=== PATIENT | male | born 1980 | race American Indian/Alaskan Native ===

== ENCOUNTER 2020-10-24 12:01 | Observation (INO) | payer OTHER, MEDICAID ==
[2020-10-24 13:25] VITALS: BP 129/85
--- NOTE | 2020-10-24 18:47 | Emergency Department Report ---
ED General Adult HPI - General Chief complaint: Medical Clearance Stated complaint: CLEARANCE FOR TREATMENT Source: patient Mode of arrival: Ambulatory Limitations: No Limitations - History of Present Illness Initial comments: 40-year-old male patient with history of alcohol use presents to the emergency department requesting medical clearance for inpatient rehabilitation. Patient states he contacted [facility] to make arrangements to receive treatment for his alcohol use disorder. He was instructed to go to the emergency department for medical clearance. Patient's last drink was approximately 80 hours ago. He has experienced withdrawal symptoms on prior occasions when attempting to discontinue alcohol use. However, he is not experiencing any symptoms at this time. Denies headache, nausea, vomiting, syncope, seizure, shortness of breath, numbness, weakness. Denies all other complaints at this time. - Related Data Allergies Allergy/AdvReac Type Severity Reaction Status Date / Time No Known Allergies Allergy Unverified 10/24/20 13:22 ED Review of Systems ROS: Stated complaint: CLEARANCE FOR TREATMENT Other details as noted in HPI Other: GENERAL: Negative for fever, chills, weight change, anorexia, fatigue. ENT: Negative for ear pain, difficulty hearing, sore throat, nasal congestion, epistaxis. CARDIOVASCULAR: Negative for chest pain, palpitations, lower extremity swelling. PULMONARY: Negative for cough, dyspnea, wheezing, orthopnea, cyanosis. GASTROINTESTINAL: Negative for abdominal pain, nausea, vomiting, diarrhea, constipation. MUSCULOSKELETAL: Negative for joint pain, joint swelling, myalgias, back pain, neck pain. NEUROLOGICAL: Negative for headache, seizure, syncope, paresthesias, weakness. INTEGUMENTARY: Negative for erythema, rash, diaphoresis, laceration, ecchymosis. HEMATOLOGICAL: Negative for hemoptysis, hematemesis, hematochezia, hematuria. PSYCHIATRIC: Negative for hallucinations, suicidal ideation, homicidal ideation, anxiety, depression. ED Past Medical Hx - Past Medical History Previous Medical History?: No Hx Hypertension: Yes - Surgical History Past Surgical History?: No ED Physical Exam - General Limitations: No Limitations - Other Other exam information: General: Awake and alert. No acute distress. Head: Atraumatic, normocephalic. Eyes: EOMI. Pupils are equal and round. Normal sclera and conjunctiva. ENT: Oral mucosa is moist. Normal pharyngeal exam. Neck: Supple. No lymphadenopathy. Pulmonary: No respiratory distress. Clear to auscultation bilaterally. Cardiac: Regular rate and rhythm. Pulses are palpable and equal bilaterally. No lower extremity cyanosis or edema. Skin: Warm and dry. No rashes. Abdomen: Soft, non-tender, non-protuberant. No guarding, rigidity, or rebound. Bowel sounds are normal. No organomegaly or masses noted. Back: Normal alignment. No CVA tenderness. Extremities: Symmetrical. Full range of motion intact. Neurological: Alert and oriented, appropriately interactive, no focal deficits. Psych: Cooperative. Appropriate mood and affect. Speech is evenly metered. Thoughts are logically construed. ED Course Vital Signs 10/24/20 13:24 Temperature 98.9 F Pulse Rate 90 Respiratory 20 Rate Blood Pressure 129/85 O2 Sat by Pulse 99 Oximetry ED Medical Decision Making - Lab Data Result diagrams: 10/24/20 18:52 10/24/20 18:52 - Medical Decision Making Differential diagnosis including but not limited to: dehydration, electrolyte abnormality, hypoglycemia, anemia, alcohol withdrawal, toxic ingestion, delirium tremens Patient presents to the emergency department requesting medical clearance for outpatient substance abuse treatment program. He is afebrile, hemodynamic stable, no distress. No clinical evidence to suggest acute alcohol withdrawal. States he has no significant past medical history outside of his alcoholism. Labs significant for moderate neutropenia with white blood cell count of 1.7, 31% neutrophils, absolute neutrophil count of 527, platelet count of 37, and schistocytes detected on peripheral smear. Chemistries significant for multiple electrolyte disturbances. Corrected with IV magnesium, oral phosphate, IV thiamine, and normal saline. Hemoglobin is stable. Etiology of patient's neutropenia is unclear at this time. Patient will require further hematological evaluation prior to receiving medical clearance for detox. Case discussed with hospitalist, who agrees to admit. Patient expressed understanding and is a greeable to plan of care. Case discussed with Dr. Cleaning, attending emergency physician, who agrees with diagnostic work-up/plan of care. Critical care attestation.: If time is entered above; I have spent that time in minutes in the direct care of this critically ill patient, excluding procedure time. ED Disposition Clinical Impression: Thrombocytopenia, History of alcohol abuse, Schistocytosis Neutropenia Qualifiers: Neutropenia type: unspecified Qualified Code(s): D70.9 - Neutropenia, unspecified Disposition: ADMITTED INPATIENT Is pt being admited?: Yes Does the pt Need Aspirin: No Condition: Serious Time of Disposition: :58
[2020-10-24 19:25] LABS: Hematocrit 37.6 % (35.5-45.6); Mean Corpuscular HGB Conc 35 % (32-34); Mean Corpuscular Volume 108 fl (84-94); Red Blood Count 3.49 M/mm3 (3.65-5.03); Red Cell Distribution Width 13.9 % (13.2-15.2)
[2020-10-24 19:36] LABS: Alanine Aminotransferase 110 units/L (7-56); Albumin 5.2 g/dL (3.9-5); BUN/Creatinine Ratio 15; Blood Urea Nitrogen 17 mg/dL (9-20); Calcium 11.1 mg/dL (8.4-10.2); Hemolysis Index 13
[2020-10-24 19:45] LABS: Bacteria,Urine 1+ /HPF (Negative); Bilirubin,Urine SM (Negative); Blood,Urine NEG (Negative); Color,Urine Amber (Yellow); Mucus,Urine 3+ /HPF
[2020-10-24 19:46] LABS: Platelet Count 37 K/mm3 (140-440)
[2020-10-24 19:49] LABS: Amphetamine Screen,Urine Negative; Benzodiazepines Screen,Urine Negative; Cocaine Screen,Urine Negative; Methadone Screen,Urine Negative; Opiate Screen,Urine Negative
[2020-10-24] MEDS ORDERED: THIAMINE 100 MG in SODIUM CHLORIDE 0.9% 50 ML IV ONE (19:50)
[2020-10-24] MEDS ORDERED: SODIUM CHLORIDE 0.9% 1000 ML 1,000 ML IV ONE ×2 (19:50→19:54)
[2020-10-24 19:55] LABS: Ictotest,Urine Negative (Negative)
[2020-10-24 20:00] LABS: Cannabinoid Screen,Urine Positive
[2020-10-24] MEDS ORDERED: MAGNESIUM SULFATE IV ONE (20:30)
[2020-10-24] MEDS ORDERED: THIAMINE IV ONE (20:30)
[2020-10-24] MEDS ORDERED: SODIUM CHLORIDE 0.9% IV ONE (20:30)
[2020-10-24] MEDS ORDERED: K-PHOS NEUTRAL 250 MG TAB PO ONE (21:00)
[2020-10-24 21:01] LABS: RBC Morphology Normal; Total Cells Counted 100
[2020-10-24 21:09] LABS: Schistocytes Rare
[2020-10-24 21:16] LABS: Basophils % (Manual) 0 % (0.0-1.8); Eosinophils % (Manual) 0 % (0.0-4.3)
[2020-10-24 22:27] LABS: Smear for Schistocytes None Seen
[2020-10-24] MEDS ORDERED: MAGNESIUM HYDROXIDE (MOM) ORAL LIQD UDC PO PRN (22:44)
[2020-10-24] MEDS ORDERED: ONDANSETRON 4 MG/2 ML INJ IV PRN (22:44)
[2020-10-24] MEDS ORDERED: ACETAMINOPHEN 325 MG TAB PO PRN (22:44)
[2020-10-24] MEDS ORDERED: HYDROcodone/ACETAMINOPHEN 5-325 MG TAB PO PRN (22:44)
[2020-10-24] MEDS ORDERED: oxyCODONE /ACETAMINOPHEN 5-325MG TAB PO PRN (22:44)
[2020-10-24] MEDS ORDERED: ALUM-MAG HYDROXIDE-SIMETHICONE 200-200-20MG/5ML ORAL LIQD 30 ML PO PRN (22:44)
[2020-10-24] MEDS ORDERED: NALOXONE 0.4 MG/1 ML INJ IV PRN (22:44)
[2020-10-24] MEDS ORDERED: METOCLOPRAMIDE 10 MG/2 ML INJ IV PRN (22:44)
[2020-10-24] MEDS ORDERED: SENNOSIDES 8.6 MG TAB PO PRN (22:44)
--- NOTE | 2020-10-24 22:44 | History and Physical Report ---
History of Present Illness Date of examination: 10/24/20 Date of admission: 10/24/20 Chief complaint: Hiccups Alcohol use disorder History of present illness: This is 40-year-old male patient seen in the ED at bedside. Patient has a history of alcohol use disorder. He presents to the emergency department requesting medical clearance for inpatient rehabilitation. Patient states he contacted [facility] to make arrangements to receive treatment for his alcohol use disorder. He was instructed to go to the emergency department for medical clearance. Patient's last drink was approximately 80 hours ago. Patient admits vodka use 1 L daily. He reports that he has experienced withdrawal symptoms on prior occasions when attempting to discontinue alcohol us e. Patient denies any withdrawal symptoms on this admission. He denies denies headache, nausea, vomiting, syncope, seizure, shortness of breath, numbness, weakness, but admits hiccups that is ongoing on and off since 1 week. Reviewed patient's medication record, blood work and vital signs. Patient has low WBC, low platelet, low potassium, low phosphorus, and low magnesium. All electrolyte has been replaced. Heme oncologist Dr. Phillip has been consulted. Patient presently not in acute distress. Past History Past Medical History: other (Alcohol abuse) Past Surgical History: No surgical history Social history: lives with family, smoking, alcohol abuse, full code. denies: IV drug use Family history: no significant family history Medications and Allergies Allergies Allergy/AdvReac Type Severity Reaction Status Date / Time No Known Allergies Allergy Unverified 10/24/20 13:22 Active Meds: Active Medications Sodium Chloride (Sodium Chloride 0.9% 10 Ml Flush Syringe) 10 ml IV PRN PRN PRN Reason: LINE FLUSH Review of Systems Constitutional: fatigue Ears, nose, mouth and throat: no epistaxis, no bleeding gums Cardiovascular: no shortness of breath, no dyspnea on exertion Respiratory: no congestion Gastrointestinal: no melena Rectal: no itching, no hemorrhoids Musculoskeletal: muscle weakness, other (Hiccups x1 week) Integumentary: no rash, no pruritis, no redness Psychiatric: anxiety, depression, hopelessness, no suicidal ideation Hematologic/Lymphatic: no easy bruising, no easy bleeding Allergic/Immunologic: no urticaria Exam - Constitutional Vitals: Temp Pulse Resp BP Pulse Ox 98.9 F 90 20 129/85 99 10/24/20 13:24 10/24/20 13:24 10/24/20 13:24 10/24/20 13:24 10/24/20 13:24 General appearance: Present: mild distress, well-nourished - EENT Eyes: Present: PERRL ENT: hearing intact, clear oral mucosa - Neck Neck: Present: supple, normal ROM - Respiratory Respiratory effort: normal Respiratory: bilateral: CTA - Cardiovascular Heart rate: 90 Heart Sounds: Present: S1 & S2. Absent: rub, click - Extremities Extremities: pulses symmetrical, No edema Peripheral Pulses: within normal limits - Abdominal General gastrointestinal: Present: soft, non-tender, non-distended, normal bowel sounds Male genitourinary: Present: normal - Integumentary Integumentary: Present: clear, warm, dry - Musculoskeletal Musculoskeletal: gait normal, strength equal bilaterally - Psychiatric Psychiatric: appropriate mood/affect, intact judgment & insight - Neurologic Neurologic: CNII-XII intact, moves all extremities - Allied Health Allied health notes reviewed: nursing Results - Labs CBC & Chem 7: 10/24/20 18:52 10/24/20 18:52 Labs: Abnormal lab results 10/24/20 10/24/20 10/24/20 Range/Units 18:52 18:52 18:52 WBC 1.7 L* (4.5-11.0) K/mm3 RBC 3.49 L (3.65-5.03) M/mm3 MCV 108 H (84-94) fl MCH 37 H (28-32) pg MCHC 35 H (32-34) % Plt Count 37 L (140-440) K/mm3 Seg Neuts % (Manual) 31.0 L (40.0-70.0) % Lymphocytes % (Manual) 58.0 H (13.4-35.0) % Monocytes % (Manual) 11.0 H (0.0-7.3) % Seg Neutrophils # Man 0.5 L (1.8-7.7) K/mm3 Lymphocytes # (Manual) 1.0 L (1.2-5.4) K/mm3 Percent Retic (0.78-2.58) % Sodium 129 L (137-145) mmol/L Potassium 3.4 L (3.6-5.0) mmol/L Chloride 83.6 L (98-107) mmol/L Calcium 11.1 H (8.4-10.2) mg/dL Phosphorus 2.10 L (2.5-4.5) mg/dL Magnesium 1.50 L (1.7-2.3) mg/dL Total Bilirubin 1.30 H (0.1-1.2) mg/dL AST 171 H (5-40) units/L ALT 110 H (7-56) units/L Total Creatine Kinase 351 H (55-170) units/L Total Protein 9.2 H (6.3-8.2) g/dL Albumin 5.2 H (3.9-5) g/dL Ur Specific [place] (1.003-1.030) Salicylates < 0.3 L (2.8-20.0) mg/dL Acetaminophen (10.0-30.0) ug/mL 10/24/20 10/24/20 10/24/20 Range/Units 18:52 20:39 Unknown WBC (4.5-11.0) K/mm3 RBC (3.65-5.03) M/mm3 MCV (84-94) fl MCH (28-32) pg MCHC (32-34) % Plt Count (140-440) K/mm3 Seg Neuts % (Manual) (40.0-70.0) % Lymphocytes % (Manual) (13.4-35.0) % Monocytes % (Manual) (0.0-7.3) % Seg Neutrophils # Man (1.8-7.7) K/mm3 Lymphocytes # (Manual) (1.2-5.4) K/mm3 Percent Retic 0.42 L (0.78-2.58) % Sodium (137-145) mmol/L Potassium (3.6-5.0) mmol/L Chloride (98-107) mmol/L Calcium (8.4-10.2) mg/dL Phosphorus (2.5-4.5) mg/dL Magnesium (1.7-2.3) mg/dL Total Bilirubin (0.1-1.2) mg/dL AST (5-40) units/L ALT (7-56) units/L Total Creatine Kinase (55-170) units/L Total Protein (6.3-8.2) g/dL Albumin (3.9-5) g/dL Ur Specific [place] 1.035 H (1.003-1.030) Salicylates (2.8-20.0) mg/dL Acetaminophen 5.0 L (10.0-30.0) ug/mL Assessment and Plan - Patient Problems (1) Neutropenia Current Visit: No Status: Inactive Qualifiers: Neutropenia type: unspecified Qualified Code(s): D70.9 - Neutropenia, unspecified Plan to address problem: Patient denies viral Covid infection exposure Patient has no other signs and symptoms of sepsis Monitor WBCheme oncologist consulted (2) Thrombocytopenia Current Visit: No Status: Inactive Plan to address problem: Likely secondary to alcohol abuse/infection Bleeding precaution. Heme oncologist has been consultedfollow-up with plan of care (3) Elevated liver enzymes Current Visit: No Status: Acute Plan to address problem: Questionable cause dehydration/alcohol abuse Continue IV hydration and monitor liver enzymes (4) Electrolyte abnormality Current Visit: No Status: Acute Plan to address problem: Patient has low potassium, phosphorus, and magnesium likely secondary to malnutrition/alcohol use All electrolytes replaced A.m. lab check mag, potassium, and phosphate level. (5) History of alcohol abuse Current Visit: No Status: Inactive Plan to address problem: Discuss alcohol use cessation CIWA protocol. As needed Ativan Replace all electrolytes as needed (6) Hiccup Current Visit: Yes Status: Acute Plan to address problem: New onsetquestionable cause As needed Reglan (7) Tobacco abuse Current Visit: Yes Status: Acute Plan to address problem: Patient admits tobacco use 1 pack daily since age of 20 Discussed tobacco use cessationcardiovascular neoplasm syndrome of tobacco use explained to patient (8) DVT prophylaxis Current Visit: Yes Status: Acute Plan to address problem: SCD -no anticoagulant, patient has low platelet
[2020-10-24] MEDS ORDERED: SODIUM CHLORIDE 0.9% 1000 ML 1,000 ML IV SCH (22:45)
[2020-10-24] MEDS ORDERED: traZODone 50 MG TAB PO PRN (22:50)
[2020-10-24] MEDS ORDERED: traMADol 50 MG TAB PO PRN (22:50)
[2020-10-24] MEDS ORDERED: MAGNESIUM SULFATE 4 GM/100 ML BAG IV ONE (22:59)
[2020-10-25] MEDS ORDERED: HALOPERIDOL LACTATE 5 MG/1 ML INJ IM PRN
[2020-10-25] MEDS ORDERED: chlordiazePOXIDE 25 MG CAP PO PRN
[2020-10-25] MEDS ORDERED: LORazepam 2 MG/ML VIAL IV PRN
[2020-10-25 00:04] LABS: Hepatitis C Virus Antibody Non-Reactive (NonReactive)
[2020-10-25 00:15] LABS: Hepatitis B Surface Antigen Nonreactive (Negative)
[2020-10-25] MEDS ORDERED: POTASSIUM CHLORIDE ER 20 MEQ TAB PO ONE (00:30)
[2020-10-25] MEDS ORDERED: PHOS-NAK POWDER PACKET PO ONE (00:30)
[2020-10-25 01:03] LABS: Albumin 4.7 g/dL (3.9-5); Bilirubin,Direct 0.3 mg/dL (0-0.2)
--- NOTE | 2020-10-25 02:49 | Hem/Onc Consultation ---
History of Present Illness - History of Present Illness heme prelim note heme consult requested for pancytopenia 40yo man with alcohol dependence eval for alcohol withdrawal found to have pancytopenia IMP: pancytopenia with severe neutropenia liver dysfunction and hypersplenism likely r/o infection r/o HIV REC: labs to include HIV Ab no intervention for low plt count no neupogen planned unless infection is found abd u/s Laboratory Last Values WBC 1.7 K/mm3 (4.5-11.0) L* 10/24/20 18:52 Hgb 13.0 gm/dl (11.8-15.2) 10/24/20 18:52 Hct 37.6 % (35.5-45.6) 10/24/20 18:52 MCV 108 fl (84-94) H 10/24/20 18:52 Plt Count 37 K/mm3 (140-440) L 10/24/20 18:52 Seg Neutrophils # Man 0.5 K/mm3 (1.8-7.7) L 10/24/20 18:52 Lymphocytes # (Manual) 1.0 K/mm3 (1.2-5.4) L 10/24/20 18:52 Percent Retic 0.42 % (0.78-2.58) L 10/24/20 20:39 Total Bilirubin 1.20 mg/dL (0.1-1.2) 10/25/20 00:34 Direct Bilirubin 0.3 mg/dL (0-0.2) H 10/25/20 00:34 Indirect Bilirubin 0.9 mg/dL 10/25/20 00:34 AST 142 units/L (5-40) H 10/25/20 00:34 ALT 93 units/L (7-56) H 10/25/20 00:34 Alkaline Phosphatase 96 units/L (35-129) 10/25/20 00:34 Plasma/Serum Alcohol < 0.01 % (0-0.07) 10/24/20 18:52 Hepatitis A IgM Ab Non-reactive (NonReactive) 10/24/20 23:09 Hep Bs Antigen Nonreactive (Negative) 10/24/20 23:09 Hep B Core IgM Ab Non-reactive (NonReactive) 10/24/20 23:09 Hepatitis C Antibody Non-reactive (NonReactive) 10/24/20 23:09 HIV 1&2 Antibody Rapid Non react (Non React) 10/24/20 23:09 HIV P24 Antigen Non react (Non React) 10/24/20 23:09 Schistocytes Smear None seen 10/24/20 20:39 Past History Past Medical History: other (Alcohol abuse) Past Surgical History: No surgical history Social history: lives with family, smoking, alcohol abuse, full code. denies: IV drug use Family history: no significant family history Medications and Allergies Allergies Allergy/AdvReac Type Severity Reaction Status Date / Time No Known Allergies Allergy Unverified 10/24/20 13:22 Active Meds: Active Medications Acetaminophen (Acetaminophen 325 Mg Tab) 650 mg PO Q4H PRN PRN Reason: Pain MILD(1-3)/Fever >100.5/GIBSON Hydrocodone Bitart/Acetaminophen (Hydrocodone/Acetaminophen 5-325 Mg Tab) 2 each PO Q6H PRN PRN Reason: Pain, Moderate (4-6) Al Hydrox/Mg Hydrox/Simethicone (Alum-Mag Hydroxide-Simethicone [id number]/5ml Oral Liqd 30 Ml) 30 ml PO Q4H PRN PRN Reason: Indigestion Chlordiazepoxide HCl (Chlordiazepoxide 25 Mg Cap) 50 mg PO Q1H PRN PRN Reason: CIWA-Ar 8-15 Haloperidol Lactate (Haloperidol Lactate 5 Mg/1 Ml Inj) 5 mg IM Q1H PRN PRN Reason: Unrespon. to mult. doses BZD's Sodium Chloride (Nacl 0.9% 1000 Ml) 1,000 mls @ 100 mls/hr IV DIRECT HUSSEIN Magnesium Sulfate (Magnesium Sulfate 4gm/100ml) 4 gm in 100 mls @ 25 mls/hr IV ONCE ONE Stop: 10/25/20 02:58 Last Admin: 10/25/20 01:47 Dose: 25 mls/hr Documented by: Lorazepam (Lorazepam 2 Mg/Ml Vial) 2 mg IV Q1H PRN PRN Reason: CIWA-Ar 8-15 Magnesium Hydroxide (Magnesium Hydroxide (Mom) Oral Liqd Udc) 30 ml PO Q4H PRN PRN Reason: Constipation Metoclopramide HCl (Metoclopramide 10 Mg/2 Ml Inj) 10 mg IV Q6H PRN PRN Reason: Nausea And Vomiting Naloxone HCl (Naloxone 0.4 Mg/1 Ml Inj) 0.1 mg IV Q2MIN PRN PRN Reason: Res Rate </= 8 or 02 SAT < 92% Ondansetron HCl (Ondansetron 4 Mg/2 Ml Inj) 4 mg IV Q8H PRN PRN Reason: Nausea And Vomiting Oxycodone/Acetaminophen (Oxycodone /Acetaminophen 5-325mg Tab) 1 tab PO Q6H PRN PRN Reason: Pain, Moderate (4-6) Senna (Sennosides 8.6 Mg Tab) 8.6 mg PO Q12HR PRN PRN Reason: Constipation Sodium Chloride (Sodium Chloride 0.9% 10 Ml Flush Syringe) 10 ml IV PRN PRN PRN Reason: LINE FLUSH Tramadol HCl (Tramadol 50 Mg Tab) 50 mg PO Q6H PRN PRN Reason: Pain, Moderate (4-6) Trazodone HCl (Trazodone 50 Mg Tab) 50 mg PO QHS PRN PRN Reason: Insomnia Last Admin: 10/25/20 01:52 Dose: 50 mg Documented by: Exam - Constitutional Vitals: Last Vital Signs Temp 98.9 F 10/24/20 13:24 Pulse 90 10/24/20 13:24 Resp 20 10/24/20 13:24 BP 129/85 10/24/20 13:24 Pulse Ox 99 10/24/20 13:24 Results - Labs lab Results: Laboratory Results - last 24 hr 10/24/20 10/24/20 10/24/20 18:52 18:52 18:52 WBC 1.7 L* RBC 3.49 L Hgb 13.0 Hct 37.6 MCV 108 H MCH 37 H MCHC 35 H RDW 13.9 Plt Count 37 L Lymph % (Auto) Manager Of Development Add Manual Diff Complete Total Counted 100 Seg Neutrophils % Manager Of Development Seg Neuts % (Manual) 31.0 L Band Neutrophils % 0 Lymphocytes % (Manual) 58.0 H Reactive Lymphs % (Man) 0 Monocytes % (Manual) 11.0 H Eosinophils % (Manual) 0 Basophils % (Manual) 0 Metamyelocytes % 0 Myelocytes % 0 Promyelocytes % 0 Blast Cells % 0 Nucleated RBC % Not Reportable Seg Neutrophils # Man 0.5 L Band Neutrophils # 0.0 Lymphocytes # (Manual) 1.0 L Abs React Lymphs (Man) 0.0 Monocytes # (Manual) 0.2 Eosinophils # (Manual) 0.0 Basophils # (Manual) 0.0 Metamyelocytes # 0.0 Myelocytes # 0.0 Promyelocytes # 0.0 Blast Cells # 0.0 WBC Morphology Not Reportable Hypersegmented Neuts Not Reportable Hyposegmented Neuts Not Reportable Hypogranular Neuts Not Reportable Smudge Cells Not Reportable Toxic Granulation Not Reportable Toxic Vacuolation Not Reportable Dohle Bodies Not Reportable Pelger-Huet Anomaly Not Reportable Fabiana Rods Not Reportable Platelet Estimate Not Reportable Clumped Platelets Not Reportable Plt Clumps, EDTA Not Reportable Large Platelets Not Reportable Giant Platelets Not Reportable Platelet Satelliting Not Reportable Plt Morphology Comment Not Reportable RBC Morphology Normal Dimorphic RBCs Not Reportable Polychromasia Not Reportable Hypochromasia Not Reportable Poikilocytosis Not Reportable Anisocytosis Not Reportable Microcytosis Not Reportable Macrocytosis Not Reportable Spherocytes Not Reportable Pappenheimer Bodies Not Reportable Sickle Cells Not Reportable Target Cells Not Reportable Tear Drop Cells Not Reportable Ovalocytes Not Reportable Helmet Cells Not Reportable [place] Bodies Not Reportable Doran Rings Not Reportable [place] Cells Not Reportable Bite Cells Not Reportable Crenated Cell Not Reportable Elliptocytes Not Reportable Acanthocytes (Spur) Not Reportable Rouleaux Not Reportable Hemoglobin C Crystals Not Reportable Schistocytes Rare Malaria parasites Not Reportable Percent Retic Terrell Bodies Not Reportable Hem Pathologist Commnt No Sodium 129 L Potassium 3.4 L Chloride 83.6 L Carbon Dioxide 28 Anion Gap 21 BUN 17 Creatinine 1.1 Estimated GFR > 60 BUN/Creatinine Ratio 15 Glucose 83 Hemoglobin A1c Lactic Acid Calcium 11.1 H Phosphorus 2.10 L Magnesium 1.50 L Total Bilirubin 1.30 H Direct Bilirubin Indirect Bilirubin AST 171 H ALT 110 H Alkaline Phosphatase 113 Total Creatine Kinase 351 H Total Protein 9.2 H Albumin 5.2 H Albumin/Globulin Ratio 1.3 Lipase 59 TSH 1.610 Urine Color Urine Turbidity Urine pH Ur Specific [place] Urine Protein Urine Glucose (UA) Urine Ketones Urine Blood Urine Nitrite Urine Bilirubin Urine Ictotest Urine Urobilinogen Ur Leukocyte Esterase Urine WBC (Auto) Urine RBC (Auto) U Epithel Cells (Auto) Urine Bacteria (Auto) Urine Mucus Salicylates Urine Opiates Screen Urine Methadone Screen Acetaminophen Ur Barbiturates Screen Ur Phencyclidine Scrn Ur Amphetamines Screen U Benzodiazepines Scrn Urine Cocaine Screen U Marijuana (THC) Screen Drugs of Abuse Note Plasma/Serum Alcohol Hepatitis A IgM Ab Hep Bs Antigen Hep B Core IgM Ab Hepatitis C Antibody HIV 1&2 Antibody Rapid HIV P24 Antigen Schistocytes Smear 10/24/20 10/24/20 10/24/20 18:52 18:52 18:52 WBC RBC Hgb Hct MCV MCH MCHC RDW Plt Count Lymph % (Auto) Add Manual Diff Total Counted Seg Neutrophils % Seg Neuts % (Manual) Band Neutrophils % Lymphocytes % (Manual) Reactive Lymphs % (Man) Monocytes % (Manual) Eosinophils % (Manual) Basophils % (Manual) Metamyelocytes % Myelocytes % Promyelocytes % Blast Cells % Nucleated RBC % Seg Neutrophils # Man Band Neutrophils # Lymphocytes # (Manual) Abs React Lymphs (Man) Monocytes # (Manual) Eosinophils # (Manual) Basophils # (Manual) Metamyelocytes # Myelocytes # Promyelocytes # Blast Cells # WBC Morphology Hypersegmented Neuts Hyposegmented Neuts Hypogranular Neuts Smudge Cells Toxic Granulation Toxic Vacuolation Dohle Bodies Pelger-Huet Anomaly Fabiana Rods Platelet Estimate Clumped Platelets Plt Clumps, EDTA Large Platelets Giant Platelets Platelet Satelliting Plt Morphology Comment RBC Morphology Dimorphic RBCs Polychromasia Hypochromasia Poikilocytosis Anisocytosis Microcytosis Macrocytosis Spherocytes Pappenheimer Bodies Sickle Cells Target Cells Tear Drop Cells Ovalocytes Helmet Cells [place] Bodies Doran Rings Glad[place] Cells Bite Cells Crenated Cell Elliptocytes Acanthocytes (Spur) Rouleaux Hemoglobin C Crystals Schistocytes Malaria parasites Percent Retic Terrell Bodies Hem Pathologist Commnt Sodium Potassium Chloride Carbon Dioxide Anion Gap BUN Creatinine Estimated GFR BUN/Creatinine Ratio Glucose Hemoglobin A1c Lactic Acid Calcium Phosphorus Magnesium Total Bilirubin Direct Bilirubin Indirect Bilirubin AST ALT Alkaline Phosphatase Total Creatine Kinase Total Protein Albumin Albumin/Globulin Ratio Lipase TSH Urine Color Urine Turbidity Urine pH Ur Specific [place] Urine Protein Urine Glucose (UA) Urine Ketones Urine Blood Urine Nitrite Urine Bilirubin Urine Ictotest Urine Urobilinogen Ur Leukocyte Esterase Urine WBC (Auto) Urine RBC (Auto) U Epithel Cells (Auto) Urine Bacteria (Auto) Urine Mucus Salicylates < 0.3 L Urine Opiates Screen Urine Methadone Screen Acetaminophen 5.0 L Ur Barbiturates Screen Ur Phencyclidine Scrn Ur Amphetamines Screen U Benzodiazepines Scrn Urine Cocaine Screen U Marijuana (THC) Screen Drugs of Abuse Note Plasma/Serum Alcohol < 0.01 Hepatitis A IgM Ab Hep Bs Antigen Hep B Core IgM Ab Hepatitis C Antibody HIV 1&2 Antibody Rapid HIV P24 Antigen Schistocytes Smear 10/24/20 10/24/20 10/24/20 20:39 20:39 23:09 WBC RBC Hgb Hct MCV MCH MCHC RDW Plt Count Lymph % (Auto) Add Manual Diff Total Counted Seg Neutrophils % Seg Neuts % (Manual) Band Neutrophils % Lymphocytes % (Manual) Reactive Lymphs % (Man) Monocytes % (Manual) Eosinophils % (Manual) Basophils % (Manual) Metamyelocytes % Myelocytes % Promyelocytes % Blast Cells % Nucleated RBC % Seg Neutrophils # Man Band Neutrophils # Lymphocytes # (Manual) Abs React Lymphs (Man) Monocytes # (Manual) Eosinophils # (Manual) Basophils # (Manual) Metamyelocytes # Myelocytes # Promyelocytes # Blast Cells # WBC Morphology Hypersegmented Neuts Hyposegmented Neuts Hypogranular Neuts Smudge Cells Toxic Granulation Toxic Vacuolation Dohle Bodies Pelger-Huet Anomaly Fabiana Rods Platelet Estimate Clumped Platelets Plt Clumps, EDTA Large Platelets Giant Platelets Platelet Satelliting Plt Morphology Comment RBC Morphology Dimorphic RBCs Polychromasia Hypochromasia Poikilocytosis Anisocytosis Microcytosis Macrocytosis Spherocytes None seen Pappenheimer Bodies Sickle Cells Target Cells Tear Drop Cells Ovalocytes Helmet Cells [place] Bodies Doran Rings Glad[place] Cells Bite Cells Crenated Cell Elliptocytes Acanthocytes (Spur) Rouleaux Hemoglobin C Crystals Schistocytes Malaria parasites Percent Retic 0.42 L Terrell Bodies Hem Pathologist Commnt Sodium Potassium Chloride Carbon Dioxide Anion Gap BUN Creatinine Estimated GFR BUN/Creatinine Ratio Glucose Hemoglobin A1c 5.1 Lactic Acid 1.80 Calcium Phosphorus Magnesium Total Bilirubin Direct Bilirubin Indirect Bilirubin AST ALT Alkaline Phosphatase Total Creatine Kinase Total Protein Albumin Albumin/Globulin Ratio Lipase TSH Urine Color Urine Turbidity Urine pH Ur Specific [place] Urine Protein Urine Glucose (UA) Urine Ketones Urine Blood Urine Nitrite Urine Bilirubin Urine Ictotest Urine Urobilinogen Ur Leukocyte Esterase Urine WBC (Auto) Urine RBC (Auto) U Epithel Cells (Auto) Urine Bacteria (Auto) Urine Mucus Salicylates Urine Opiates Screen Urine Methadone Screen Acetaminophen Ur Barbiturates Screen Ur Phencyclidine Scrn Ur Amphetamines Screen U Benzodiazepines Scrn Urine Cocaine Screen U Marijuana (THC) Screen Drugs of Abuse Note Plasma/Serum Alcohol Hepatitis A IgM Ab Hep Bs Antigen Hep B Core IgM Ab Hepatitis C Antibody HIV 1&2 Antibody Rapid HIV P24 Antigen Schistocytes Smear None seen 10/24/20 10/24/20 10/24/20 23:09 23:09 Unknown WBC RBC Hgb Hct MCV MCH MCHC RDW Plt Count Lymph % (Auto) Add Manual Diff Total Counted Seg Neutrophils % Seg Neuts % (Manual) Band Neutrophils % Lymphocytes % (Manual) Reactive Lymphs % (Man) Monocytes % (Manual) Eosinophils % (Manual) Basophils % (Manual) Metamyelocytes % Myelocytes % Promyelocytes % Blast Cells % Nucleated RBC % Seg Neutrophils # Man Band Neutrophils # Lymphocytes # (Manual) Abs React Lymphs (Man) Monocytes # (Manual) Eosinophils # (Manual) Basophils # (Manual) Metamyelocytes # Myelocytes # Promyelocytes # Blast Cells # WBC Morphology Hypersegmented Neuts Hyposegmented Neuts Hypogranular Neuts Smudge Cells Toxic Granulation Toxic Vacuolation Dohle Bodies Pelger-Huet Anomaly Fabiana Rods Platelet Estimate Clumped Platelets Plt Clumps, EDTA Large Platelets Giant Platelets Platelet Satelliting Plt Morphology Comment RBC Morphology Dimorphic RBCs Polychromasia Hypochromasia Poikilocytosis Anisocytosis Microcytosis Macrocytosis Spherocytes Pappenheimer Bodies Sickle Cells Target Cells Tear Drop Cells Ovalocytes Helmet Cells [place] Bodies Doran Rings [place] Cells Bite Cells Crenated Cell Elliptocytes Acanthocytes (Spur) Rouleaux Hemoglobin C Crystals Schistocytes Malaria parasites Percent Retic Terrell Bodies Hem Pathologist Commnt Sodium Potassium Chloride Carbon Dioxide Anion Gap BUN Creatinine Estimated GFR BUN/Creatinine Ratio Glucose Hemoglobin A1c Lactic Acid Calcium Phosphorus Magnesium Total Bilirubin Direct Bilirubin Indirect Bilirubin AST ALT Alkaline Phosphatase Total Creatine Kinase Total Protein Albumin Albumin/Globulin Ratio Lipase TSH Urine Color Ste[place]any Urine Turbidity Clear Urine pH 5.0 Ur Specific [place] 1.035 H Urine Protein 100 mg/dl Urine Glucose (UA) Neg Urine Ketones 20 Urine Blood Neg Urine Nitrite Neg Urine Bilirubin Sm Urine Ictotest Negative Urine Urobilinogen 4.0 Ur Leukocyte Esterase Neg Urine WBC (Auto) 1.0 Urine RBC (Auto) 3.0 U Epithel Cells (Auto) 1.0 Urine Bacteria (Auto) 1+ Urine Mucus 3+ Salicylates Urine Opiates Screen Urine Methadone Screen Acetaminophen Ur Barbiturates Screen Ur Phencyclidine Scrn Ur Amphetamines Screen U Benzodiazepines Scrn Urine Cocaine Screen U Marijuana (THC) Screen Drugs of Abuse Note Plasma/Serum Alcohol Hepatitis A IgM Ab Non-reactive Hep Bs Antigen Nonreactive Hep B Core IgM Ab Non-reactive Hepatitis C Antibody Non-reactive HIV 1&2 Antibody Rapid Non react HIV P24 Antigen Non react Schistocytes Smear 10/24/20 10/25/20 Unknown 00:34 WBC RBC Hgb Hct MCV MCH MCHC RDW Plt Count Lymph % (Auto) Add Manual Diff Total Counted Seg Neutrophils % Seg Neuts % (Manual) Band Neutrophils % Lymphocytes % (Manual) Reactive Lymphs % (Man) Monocytes % (Manual) Eosinophils % (Manual) Basophils % (Manual) Metamyelocytes % Myelocytes % Promyelocytes % Blast Cells % Nucleated RBC % Seg Neutrophils # Man Band Neutrophils # Lymphocytes # (Manual) Abs React Lymphs (Man) Monocytes # (Manual) Eosinophils # (Manual) Basophils # (Manual) Metamyelocytes # Myelocytes # Promyelocytes # Blast Cells # WBC Morphology Hypersegmented Neuts Hyposegmented Neuts Hypogranular Neuts Smudge Cells Toxic Granulation Toxic Vacuolation Dohle Bodies Pelger-Huet Anomaly Fabiana Rods Platelet Estimate Clumped Platelets Plt Clumps, EDTA Large Platelets Giant Platelets Platelet Satelliting Plt Morphology Comment RBC Morphology Dimorphic RBCs Polychromasia Hypochromasia Poikilocytosis Anisocytosis Microcytosis Macrocytosis Spherocytes Pappenheimer Bodies Sickle Cells Target Cells Tear Drop Cells Ovalocytes Helmet Cells [place] Bodies Doran Rings [place] Cells Bite Cells Crenated Cell Elliptocytes Acanthocytes (Spur) Rouleaux Hemoglobin C Crystals Schistocytes Malaria parasites Percent Retic Terrell Bodies Hem Pathologist Commnt Sodium Potassium Chloride Carbon Dioxide Anion Gap BUN Creatinine Estimated GFR BUN/Creatinine Ratio Glucose Hemoglobin A1c Lactic Acid Calcium Phosphorus Magnesium Total Bilirubin 1.20 Direct Bilirubin 0.3 H Indirect Bilirubin 0.9 AST 142 H ALT 93 H Alkaline Phosphatase 96 Total Creatine Kinase Total Protein 7.7 Albumin 4.7 Albumin/Globulin Ratio 1.6 Lipase TSH Urine Color Urine Turbidity Urine pH Ur Specific [place] Urine Protein Urine Glucose (UA) Urine Ketones Urine Blood Urine Nitrite Urine Bilirubin Urine Ictotest Urine Urobilinogen Ur Leukocyte Esterase Urine WBC (Auto) Urine RBC (Auto) U Epithel Cells (Auto) Urine Bacteria (Auto) Urine Mucus Salicylates Urine Opiates Screen Negative Urine Methadone Screen Negative Acetaminophen Ur Barbiturates Screen Negative Ur Phencyclidine Scrn Negative Ur Amphetamines Screen Negative U Benzodiazepines Scrn Negative Urine Cocaine Screen Negative U Marijuana (THC) Screen Positive Drugs of Abuse Note Disclamer Plasma/Serum Alcohol Hepatitis A IgM Ab Hep Bs Antigen Hep B Core IgM Ab Hepatitis C Antibody HIV 1&2 Antibody Rapid HIV P24 Antigen Schistocytes Smear
[2020-10-25 06:33] LABS: Hematocrit 32.8 % (35.5-45.6); Hemoglobin 11.4 gm/dl (11.8-15.2); Mean Corpuscular HGB Conc 35 % (32-34); Mean Corpuscular Volume 108 fl (84-94); Red Blood Count 3.04 M/mm3 (3.65-5.03)
[2020-10-25 06:57] LABS: Alanine Aminotransferase 90 units/L (7-56); Albumin 4.7 g/dL (3.9-5); BUN/Creatinine Ratio 18; Blood Urea Nitrogen 16 mg/dL (9-20); Calcium 10.3 mg/dL (8.4-10.2); Hemolysis Index 13
[2020-10-25 07:05] LABS: Platelet Count 42 K/mm3 (140-440)
[2020-10-25] MEDS ORDERED: POTASSIUM CHLORIDE ER 20 MEQ TAB PO NR (07:37)
[2020-10-25] MEDS ORDERED: MAGNESIUM SULFATE 2 GM in SODIUM CHLORIDE 0.9% 50 ML IV NR (08:00)
--- NOTE | 2020-10-25 08:05 | Discharge Summary ---
Providers - Providers Date of Admission: 10/24/20 22:45 Attending physician: DUC UNDERWOOD MD 10/24/20 22:44 Consult to Physician [CONS] Routine Comment: Consulting Provider: MALIA LANDAVERDE Physician Instructions: Reason For Exam: low WBC Primary care physician: CORPORATE WELLNESS COORDINATOR Hospitalization Reason for admission: Abnormal blood work Condition: Stable Hospital course: This is 40-year-old male patient seen in the ED at bedside. Patient has a history of alcohol use disorder. He presents to the emergency department requesting medical clearance for inpatient rehabilitation. Patient states he contacted [facility] to make arrangements to receive treatment for his alcohol use disorder. He was instructed to go to the emergency department for medical clearance. Patient's last drink was approximately 80 hours ago. Patient admits vodka use 1 L daily. He reports that he has experienced withdrawal symptoms on prior occasions when attempting to discontinue alcohol use. Patient denies any withdrawal symptoms on this admission. He denies denies headache, nausea, vomiting, syncope, seizure, shortness of breath, numbness, weakness, but admits hiccups that is ongoing on and off since 1 week. Reviewed patient's medication record, blood work and vital signs. Patient has low WBC, low platelet, low potassium, low phosphorus, and low magnesium. All electrolyte has been replaced. Heme oncologist Dr. Phillip has been consulted. Patient presently not in acute distress. Patient seen and examined, hx reviewed with him including medications, also recommendation by Digital Strategy Director reviewed. No clear evidence of infection. HIV workup still ongoing and he will follow out patient. For now per Digital Strategy Director labs to include HIV Ab no intervention for low plt count no neupogen planned unless infection is found abd u/s Electrolytes were corrected. And recommend repeat studies in 2 to 3 days. Low magnesium and potassium secondary to ETOH abuse. Patient unfortunately left AMA before results of magnesium and potassium came back. Since discharge was dependent on this. (1) Pancytopenia with severe neutropenia/Liver dysfunction and possible hypersplenesim Current Visit: No Status: Inactive Qualifiers: Neutropenia type: unspecified Qualified Code(s): D70.9 - Neutropenia, unspecified Plan to address problem: Patient denies viral Covid infection exposure Patient has no other signs and symptoms of sepsis Monitor WBCheme oncologist consulted (2) Thrombocytopenia Current Visit: No Status: Inactive Plan to address problem: Likely secondary to alcohol abuse/infection Bleeding precaution. Heme oncologist has been consultedfollow-up with plan of care (3) Elevated liver enzymes Current Visit: No Status: Acute Plan to address problem: Questionable cause dehydration/alcohol abuse Continue IV hydration and monitor liver enzymes (4) Electrolyte abnormality Current Visit: No Status: Acute Plan to address problem: Patient has low potassium, phosphorus, and magnesium likely secondary to malnutrition/alcohol use All electrolytes replaced A.m. lab check mag, potassium, and phosphate level. (5) alcohol abuse Current Visit: No Status: Inactive Plan to address problem: Discuss alcohol use cessation CIWA protocol. As needed Ativan Replace all electrolytes as needed (6) Hiccup- resolved Current Visit: Yes Status: Acute Plan to address problem: New onsetquestionable cause As needed Reglan (7) Tobacco abuse Current Visit: Yes Status: Acute Plan to address problem: Patient admits tobacco use 1 pack daily since age of 20 Discussed tobacco use cessationcardiovascular neoplasm syndrome of tobacco use explained to patient (8) Hypomagenesmia (9) Hypokalemia Disposition: LEFT AGAINST MEDICAL ADVICE Final Discharge Diagnosis (Prints w/discharge instructions): Pancytopenia with severe neutropenia in an alcoholic Time spent for discharge: 35 mins Core Measure Documentation - Palliative Care Palliative Care/ Comfort Measures: Not Applicable - Core Measures Any of the following diagnoses?: none Exam - Physical Exam Narrative exam: General appearance: Present: No distress, well-nourished - EENT Eyes: Present: PERRL ENT: hearing intact, clear oral mucosa - Neck Neck: Present: supple, normal ROM - Respiratory Respiratory effort: normal Respiratory: bilateral: CTA - Cardiovascular Heart rate: 90 Heart Sounds: Present: S1 & S2. Absent: rub, click - Extremities Extremities: pulses symmetrical, No edema Peripheral Pulses: within normal limits - Abdominal General gastrointestinal: Present: soft, non-tender, non-distended, normal bowel sounds Male genitourinary: Present: normal - Integumentary Integumentary: Present: clear, warm, dry - Musculoskeletal Musculoskeletal: gait normal, strength equal bilaterally - Psychiatric Psychiatric: appropriate mood/affect, intact judgment & insight - Neurologic Neurologic: CNII-XII intact, moves all extremities - Allied Health Allied health notes reviewed: nursing - Constitutional Vitals: Temp Pulse Resp BP Pulse Ox 98.9 F 90 20 129/85 99 10/24/20 13:24 10/24/20 13:24 10/24/20 13:24 10/24/20 13:24 10/24/20 13:24 Plan Activity: advance as tolerated, fall precautions Diet: regular Special Instructions: record daily weights, record daily BP diary, smoking cessation, other (quit etoh, continue with your rehab) Plan of Treatment: Continue with planned rehab, follow with human relations manager outpatient and ID for completion of work up Follow up with: PRIMARY CARE, [Primary Care Provider] - 3-5 Days JAMEEL CORNELIUS MD [Staff Physician] - 7 Days SHAI SANDERS MD [Staff Physician] - 7 Days Prescriptions: Potassium Chloride [K-Dur] 20 meq PO DAILY #5 tablet Magnesium Oxide 400 mg PO DAILY #30 tablet
[2020-10-25] MEDS: POTASSIUM CHLORIDE 10 MEQ 10 MEQ/100 ML BAG IV SCH ×2 (09:20→12:09)
--- NOTE | 2020-10-25 14:22 | Ultrasound Report ---
LIMITED RUQ ABDOMINAL ULTRASOUND INDICATION: cirrhosis, low plt, r/o splenomegaly. COMPARISON: No relevant prior imaging study available. FINDINGS: Pancreas: Visualized portions show no significant abnormality. Abdominal Aorta: No significant abnormality. IVC: No significant abnormality. Liver: The liver measures 16.2 cm in length. The liver is echogenic and attenuates the ultrasound be am consistent with moderate fatty infiltration. No focal liver lesion is appreciated. No convincing c irrhotic changes. Normal hepatopedal blood flow in the main portal vein. Gallbladder: No significant abnormality. Bile ducts: No significant abnormality. Common bile duct measures 5.3 mm. Kidneys: No significant abnormality visualized. Spleen: The spleen was not imaged because the patient became uncooperative and refused to finish the exam. Free fluid: None. Additional Findings: None. IMPRESSION: Mild hepatomegaly with moderate fatty infiltration. No convincing cirrhosis. The patient would not allow evaluation of the spleen, see above. Otherwise unremarkable exam. Signer Name: Isael Bassett Jr, MD Signed: 10/25/2020 2:17 PM Workstation Name: [id number]
[2020-10-25 15:21] LABS: Total Cells Counted 100
[2020-10-25 15:22] LABS: Platelet Estimate Consistent w Auto; Promyelocytes # (Manual) 6.3 K/mm3; RBC Morphology Normal
[2020-10-30 11:13] LABS: CD4/CD8 Ratio 1.84 (0.86-5.00)
== END 2020-10-25 12:06 | disposition left against medical advice (07) ==
LOC: ED 12:01 → 3A 22:45 → INTOOBSV 22:45 → 4A 10-25 07:53
PROVIDERS: ADMIT Internal Medicine Geriatric Medicine; ATTEND Internal Medicine
DX: D70.9 Neutropenia, unspecified (principal); Z20.822 Contact with and (suspected) exposure to COVID-19; D69.6 Thrombocytopenia, unspecified; A01 Typhoid and paratyphoid fevers; R79.89 Other specified abnormal findings of blood chemistry; D59.4 Other nonautoimmune hemolytic anemias; D61.818 Other pancytopenia; E83.42 Hypomagnesemia; E87.6 Hypokalemia; E87.8 Other disorders of electrolyte and fluid balance, not elsewhere classified; F10.129 Alcohol abuse with intoxication, unspecified; F17.210 Nicotine dependence, cigarettes, uncomplicated; Z79.899 Other long term (current) drug therapy; Z98.890 Other specified postprocedural states
CPT/HCPCS: 36415; 76705; 80053; 80074; 80307; 81001; 82024; 82140; 82550; 83036; 83690; 83735; 84100; 84132; 84443; 85025; 85045; 87040; 87207; 87806; 96361; 96365; 96366; 96367; 99284; G0378; J3411; J3475; J3480; J7030; U0003; 80076; 80320; 85007; G0480